=== PATIENT | female | born 1990 | race Asian ===

== ENCOUNTER → 2023-09-28 18:39 | Outpatient (REF) | payer OTHER, SELFPAY | LOC: CLAB 18:39 | PROVIDERS: ATTENDING PHYSICIAN Family Medicine | DX: J02.9 Acute pharyngitis, unspecified (principal); J02.8 Acute pharyngitis due to other specified organisms | CPT/HCPCS: 87070 ==

== ENCOUNTER → 2024-02-10 09:03 | Outpatient (REF) | payer OTHER, SELFPAY ==
[2024-02-10 09:47] LABS: Hematocrit 34.7 % (37.0-47.0); Hemoglobin 11.9 g/dL (12.0-16.0); Mean Corp Hgb Conc. 34.3 g/dL (33.0-37.0); Mean Corpuscular Volume 90.4 fL (81.0-99.0); Mean Platelet Volume 9.8 fL (7.4-10.4); Platelet Count 269 10^3/uL (130-400); Red Blood Cell Count 3.84 10^6/uL (4.20-5.40); Red Cell Dist. Width 11.7 % (11.5-14.5); White Blood Cell Count 5.4 10^3/uL (4.8-10.8)
[2024-02-10 10:27] LABS: % Basophils 0.4 % (0-2); % Eosinophils 2.2 % (0-6); % Immature Granulocytes 0.4 % (0-0.5); % Lymphocytes 31.8 % (20.5-51.1); % Monocytes 5.8 % (1.7-9.3); % Neutrophils 59.4 % (42.2-75.2); Absolute Eosinophils 0.1 10^3/uL (0-0.7); Absolute Lymphocytes 1.7 10^3/uL (1.2-3.4); Absolute Monocytes 0.3 10^3/uL (0.1-0.6); Absolute Neutrophils 3.2 10^3/uL (1.4-6.5); Nucleated Red Blood Cells % 0 %
[2024-02-10 10:37] LABS: ALT (SGPT) 18 U/L (0-35); AST (SGOT) 23 U/L (14-36); Albumin 4.5 g/dl (3.5-5.0); Alkaline Phosphatase 43 U/L (38-126); Blood Urea Nitrogen 13 mg/dl (7-17); Calcium 9.2 mg/dl (8.4-10.2); Carbon Dioxide 21 mmol/L (22-30); Chloride 105 mmol/L (98-107); Glucose 84 mg/dl (70-99); HDL Cholesterol 50 mg/dl; LDL Cholesterol, Calculated 93 mg/dl; Potassium 4.2 mmol/L (3.5-5.1); Sodium 137 mmol/L (135-145); Total Bilirubin 0.6 mg/dl (0.2-1.3); Total Cholesterol 171 mg/dl (50-199); Total Protein 7.3 g/dl (6.3-8.2); Triglyceride 141 mg/dl (10-149); Very Low Density Lipoprotein 28 mg/dl (0-30); eGFR > 60.00
[2024-02-10 10:41] LABS: TSH Reflex To Free T4 1.49 uIU/ml (0.47-4.68)
== END ==
LOC: REG 09:03
PROVIDERS: ATTENDING PHYSICIAN Nurse Practitioner Family
DX: Z00.00 Encounter for general adult medical examination without abnormal findings (principal)
CPT/HCPCS: 36415; 80053; 80061; 84443; 85025

== ENCOUNTER → 2024-03-01 16:41 | Outpatient (REF) | payer OTHER, SELFPAY ==
[2024-03-01 17:09] LABS: % Basophils 0.3 % (0-2); % Immature Granulocytes 0.7 % (0-0.5); % Lymphocytes 22.9 % (20.5-51.1); % Monocytes 8.6 % (1.7-9.3); % Neutrophils 66.5 % (42.2-75.2); Absolute Eosinophils 0.1 10^3/uL (0-0.7); Absolute Immature Granulocytes 0.1 10^3/uL (0-0.05); Absolute Lymphocytes 2.3 10^3/uL (1.2-3.4); Absolute Monocytes 0.9 10^3/uL (0.1-0.6); Absolute Neutrophils 6.6 10^3/uL (1.4-6.5); Hematocrit 31.4 % (37.0-47.0); Hemoglobin 10.7 g/dL (12.0-16.0); Mean Corp Hgb Conc. 34.1 g/dL (33.0-37.0); Mean Corpuscular Hgb 30.7 pg (27.0-31.0); Mean Platelet Volume 9.4 fL (7.4-10.4); Nucleated Red Blood Cells % 0 %; Platelet Count 409 10^3/uL (130-400); Red Blood Cell Count 3.49 10^6/uL (4.20-5.40); Red Cell Dist. Width 11.7 % (11.5-14.5)
[2024-03-01 17:50] LABS: Ferritin 83.9 ng/ml (6.24-137)
[2024-03-01 18:05] LABS: Iron 43 ug/dl (37-170); Percent Saturation 15 % (20-50); Total Iron Binding Capacity 284 ug/dl (265-497)
== END ==
LOC: REG 16:41
PROVIDERS: ATTENDING PHYSICIAN Nurse Practitioner Family
DX: D64.9 Anemia, unspecified (principal); R79.9 Abnormal finding of blood chemistry, unspecified
CPT/HCPCS: 36415; 82728; 83540; 83550; 85025

== ENCOUNTER → 2024-07-04 16:14 | Outpatient (REF) | payer OTHER, SELFPAY ==
[2024-07-04 16:58] LABS: Iron 92 ug/dl (37-170)
[2024-07-04 17:03] LABS: % Basophils 0.3 % (0-2); % Eosinophils 1.2 % (0-6); % Immature Granulocytes 0.5 % (0-0.5); % Lymphocytes 34.4 % (20.5-51.1); % Monocytes 7.8 % (1.7-9.3); % Neutrophils 55.8 % (42.2-75.2); Absolute Eosinophils 0.1 10^3/uL (0-0.7); Absolute Lymphocytes 2.5 10^3/uL (1.2-3.4); Absolute Monocytes 0.6 10^3/uL (0.1-0.6); Absolute Neutrophils 4.1 10^3/uL (1.4-6.5); Hematocrit 38.5 % (37.0-47.0); Hemoglobin 12.9 g/dL (12.0-16.0); Mean Corp Hgb Conc. 33.5 g/dL (33.0-37.0); Mean Corpuscular Hgb 31.4 pg (27.0-31.0); Mean Corpuscular Volume 93.7 fL (81.0-99.0); Mean Platelet Volume 9.3 fL (7.4-10.4); Nucleated Red Blood Cells % 0 %; Platelet Count 364 10^3/uL (130-400); Red Blood Cell Count 4.11 10^6/uL (4.20-5.40); White Blood Cell Count 7.3 10^3/uL (4.8-10.8)
[2024-07-04 17:07] LABS: Percent Saturation 28 % (20-50); Total Iron Binding Capacity 322 ug/dl (265-497)
[2024-07-04 17:34] LABS: Ferritin 88.9 ng/ml (6.24-137)
== END ==
LOC: REG 16:14
PROVIDERS: ATTENDING PHYSICIAN Nurse Practitioner Family
DX: E61.1 Iron deficiency (principal); Z01.419 Encounter for gynecological examination (general) (routine) without abnormal findings; R79.9 Abnormal finding of blood chemistry, unspecified; D64.9 Anemia, unspecified
CPT/HCPCS: 36415; 82728; 83540; 83550; 85025

== ENCOUNTER → 2024-11-24 11:11 | Outpatient (REF) | payer OTHER, SELFPAY ==
[2024-12-03 01:28] LABS: HPV, High Risk Detected; HPV, High Risk Source Cervical
== END ==
LOC: CPAP 11:11
PROVIDERS: ATTENDING PHYSICIAN Nurse Practitioner Family
DX: Z01.419 Encounter for gynecological examination (general) (routine) without abnormal findings (principal); Z11.51 Encounter for screening for human papillomavirus (HPV)
CPT/HCPCS: 87491; 87591; 87624

== ENCOUNTER → 2025-01-18 15:55 | Outpatient (REF) | payer OTHER, SELFPAY | LOC: CLAB 15:55 | PROVIDERS: ATTENDING PHYSICIAN Nurse Practitioner Family | DX: R87.610 Atypical squamous cells of undetermined significance on cytologic smear of cervix (ASC-US) (principal); R87.810 Cervical high risk human papillomavirus (HPV) DNA test positive | CPT/HCPCS: 88305; 88341; 88342 ==

== ENCOUNTER 2025-03-10 06:18 | Day surgery (SDC) | payer BC, SELFPAY ==
[2025-03-10] VITALS (8 sets, daily range): BP systolic 104–117; BP diastolic 54–72; BMI 22.9
[2025-03-10] MEDS: TYLENOL 1000 MG PO (10:16)
[2025-03-10] MEDS: NEURONTIN 300 MG PO (10:17)
[2025-03-10] MEDS: NORMOSOL-R/PLASMALYTE-A 1000 IV (10:19)
--- NOTE | 2025-03-10 11:44 | W.IMMPOSTOP ---
Surgical Immed Post Op Note
-
Primary Surgeon: Pat Harris DO
Thoracic Surgeon: none
Pre-op Diagnosis: High grade cervical dysplasia
Post-op Diagnosis: same
Procedure Performed: LEEP and ecc under colposcopic guidance.
Anesthesia Type: general LMA Dr. Koenig
Specimen / Cultures: 1. LEEP cervical specimen 2. ECC
Estimated Blood Loss: 5ml
Complications: none
Operative Findings: Acetowhite changes noted at 12:00. No atypical or abnormal vessels seen. Loop 1.5x1.5cm.
Stable to recovery.
== END 2025-03-10 13:55 | disposition home or self-care (01) ==
LOC: SDS 06:18
PROVIDERS: ATTENDING PHYSICIAN Obstetrics & Gynecology
DX: N72 Inflammatory disease of cervix uteri (principal)
CPT/HCPCS: 57522; 86850; 86900; 86901; 88305; 88307